=== PATIENT | female | born 1960 | race Caucasian/White ===

== ENCOUNTER 2023-12-24 22:03 | Emergency (ER) | payer BC, SELFPAY ==
[2023-12-24 22:05] VITALS: BP 111/81
--- NOTE | 2023-12-24 23:16 | ED.GENMED ---
History of Present Illness
General
Chief Complaint: Musculo-Skeletal Complaint
Source: patient
Exam Limitations: none
Time Seen by Provider: 12/24/23 23:07
History of Present Illness
History of Present Illness:
This is a 63 year old female that comes in with c/o left ankle pain. States that it started to rain and she jumped up on the bench to see if the dog bed was getting wet. States that she couldn't see it so she went to get down and thought her right
foot would land on the bench but she missed and fell on the left ankle. Denies hitting her head or any LOC. Denies any fever,chills, nausea, vomiting, headache, dizziness.
Past History
Past History
ED Past Medical History: None; Negative Asthma, HTN, Hypercholesterolemia or NIDDM
ED Past Surgical History: Gynecological (Tubal) and Tonsilectomy
Social History
Tobacco: Non-smoker
Alcohol: Daily (wine 1)
Personal:
Living: with family
Review of Systems
Review of Systems
All Other Systems: ROS reviewed and negative except as documented in HPI and ROS
Constitutional: Reports no symptoms; Denies fever or chills
EENT: Reports no symptoms
Respiratory: Denies cough or trouble breathing
Cardiac: Reports no symptoms
ABD/GI: Reports no symptoms; Denies abdominal pain, nausea, vomiting or diarrhea
: Reports no symptoms
Musculoskeletal: Reports joint pain (left ankle pain and swelling)
Skin: Reports no symptoms
Neurological: Reports no symptoms; Denies dizzy or headache
Psychiatric: Reports no symptoms
Phy Exam
General Physical Exam
General Presentation: well appearing and no apparent distress
General age: appears stated age
General Skin: warm and dry
General Habitus: normal
General Mental: alert
Eye Exam
Eye Exam: EOMI
Musculoskeletal Exam
Musculoskeletal Exam: full ROM and joint swelling (Left lateral swelling and tender to palpation Patient able to planter and dorsal flex Moves toes without discomfort)
Skin Exam
Skin Exam: normal color, warm/dry, no rash and no petechia
Psychiatric Exam
Psychiatric Exam: normal mood/affect
Course
Orders/Labs/Results
Orders:
Orders
12/24/23 22:08
Ankle, left 3 view CR [CR Ankle - Left Min 3 Views ] Urgent
Comment:
Reason For Exam: pain, swelling, fall
12/24/23 23:15
Air Splint Left-Treatment ONCE
12/24/23 23:16
Marin Wrap Left-Treatment ONCE
Vital Signs
Initial and Last Documented VS:
Initial Vital Signs
Temp Pulse Resp BP Pulse Ox
98.5 F 62 18 111/81 98
12/24/23 22:05 12/24/23 22:05 12/24/23 22:05 12/24/23 22:05 12/24/23 22:05
Last Documented Vital Signs
Temp Pulse Resp BP Pulse Ox
98.5 F 62 18 111/81 98
12/24/23 22:05 12/24/23 22:05 12/24/23 22:05 12/24/23 22:05 12/24/23 22:05
MDM/Problems Addressed
Differential Diagnosis Includes:
ankle sprain, ankle fracture
MDM/Problems Addressed:
This is a 63 year old female that comes in with c/o left ankle pain after jumping of a bench.
Will get X-ray.
Explained to patient that the X-ray is negative for any fracture. Will have patient use Ibuprofen for pain. Will give an marin and air splint. Patient to see orthopedics in the next 5-7 days if not getting any better. Ice, elevate
Chronic conditions affecting care:
NA
Acute Exacerbation and/or Progression of Chronic Illness:
NA
*Pulse Oximetry
Patient hypoxic: no
*EKG
Interpreted by ED Provider?: NA
Rate: EKG- N/A
*Community Development Specialist Interpretation
Rate: Community Development Specialist- N/A
*Critical Care Note
Total Time (30-74mins, 75-104mins- exclusive of procedures): Not Applicable
ED Attending Note
-
Portions of this chart may have been created with voice recognition software.� Occasional wrong word or��sound alike� substitutions may have occurred due to the inherent limitations of voice recognition software.
Discharge Plan
Departure
Patient Disposition: Home (Routine Discharge)
Date of Disposition: 12/24/23
Time of Disposition: 23:21
Patient with high blood pressure during this ER visit?: No
Condition: Good
Covid-19: Not Applicable
Discharge Problem:
Right ankle sprain
Instructions: Ankle Sprain ED, Ankle air splint and elastic bandage, RICE Therapy
Prescriptions:
No Action
No Current Medications
0
Referrals:
Ellen Garcia I., DO [Active] - Follow up in 1 week
Activity Restrictions/Additional Instructions:
As discussed, your X-rays is negative for any fractures. This is most likely a sprain. Please rest, ice and elevated. Ibuprofen as needed for pain. Wear the marin and air splint when you are up and walking. If after 5-7 days you are unable to bear
weight you will need to see the counterintelligence specialist. iF YOU HAVE ANY OTHER CONCERNS PLEASE RETURN TO THE EMERGENCY ROOM.
Interventions
Interventions:
*Risk Screen - Suicide Last Done: 12/24/23 22:05
*General Assessment Last Done: 12/24/23 22:05
*Neglect/Abuse Screening Last Done: 12/24/23 22:05
ED-Musculoskeletal Assessment Last Done: 12/24/23 23:00
Discharge Date and Time
Print Language: IVORIAN
== END 2023-12-24 23:55 | disposition home or self-care (01) ==
LOC: EMR 22:03
PROVIDERS: EMERGENCY PHYSICIAN Student in an Organized Health Care Education/Training Program
DX: S93.401A Sprain of unspecified ligament of right ankle, initial encounter (principal); X58.XXXA Exposure to other specified factors, initial encounter
CPT/HCPCS: 99283; 73610

== ENCOUNTER 2024-04-17 09:59 | Outpatient (RCR) | payer BC, SELFPAY | END 2024-04-17 23:59 | disposition home or self-care (01) | LOC: RPT 09:59 | PROVIDERS: ATTENDING PHYSICIAN Physician Assistant Surgical; FAMILY PHYSICIAN Internal Medicine | DX: M25.572 Pain in left ankle and joints of left foot (principal); S82.65XG Nondisplaced fracture of lateral malleolus of left fibula, subsequent encounter for closed fracture with delayed healing; S63.412D Traumatic rupture of collateral ligament of right middle finger at metacarpophalangeal and interphalangeal joint, subsequent encounter; Z73.6 Limitation of activities due to disability | CPT/HCPCS: 97110; 97112; 97162 ==

== ENCOUNTER 2024-05-08 10:00 | Outpatient (RCR) | payer BC, SELFPAY | END 2024-05-08 23:59 | disposition home or self-care (01) | LOC: RPT 10:00 | PROVIDERS: ATTENDING PHYSICIAN Physician Assistant Surgical; FAMILY PHYSICIAN Internal Medicine | DX: M25.572 Pain in left ankle and joints of left foot (principal); S82.65XG Nondisplaced fracture of lateral malleolus of left fibula, subsequent encounter for closed fracture with delayed healing; S63.412D Traumatic rupture of collateral ligament of right middle finger at metacarpophalangeal and interphalangeal joint, subsequent encounter; Z73.6 Limitation of activities due to disability | CPT/HCPCS: 97110; 97112 ==

== ENCOUNTER → 2024-10-18 08:44 | Outpatient (REF) | payer MEDICARE, SELFPAY ==
[2024-10-18 09:34] LABS: % Basophils 0.8 % (0-2); % Immature Granulocytes 0.4 % (0-0.5); % Lymphocytes 36.5 % (20.5-51.1); % Neutrophils 50.3 % (42.2-75.2); Absolute Eosinophils 0.1 10^3/uL (0-0.7); Absolute Lymphocytes 1.9 10^3/uL (1.2-3.4); Absolute Monocytes 0.6 10^3/uL (0.1-0.6); Absolute Neutrophils 2.6 10^3/uL (1.4-6.5); Hemoglobin 13.2 g/dL (12.0-16.0); Mean Corp Hgb Conc. 33.8 g/dL (33.0-37.0); Mean Corpuscular Hgb 29.4 pg (27.0-31.0); Mean Corpuscular Volume 86.9 fL (81.0-99.0); Mean Platelet Volume 10.7 fL (7.4-10.4); Nucleated Red Blood Cells % 0 %; Platelet Count 258 10^3/uL (130-400); Red Blood Cell Count 4.49 10^6/uL (4.20-5.40); Red Cell Dist. Width 13.5 % (11.5-14.5); White Blood Cell Count 5.2 10^3/uL (4.8-10.8)
[2024-10-18 10:54] LABS: Glycohemoglobin (HgbA1c) 5.6 % (4.0-5.6)
[2024-10-18 11:16] LABS: ALT (SGPT) 45 U/L (0-35); AST (SGOT) 24 U/L (14-36); Albumin 4.3 g/dl (3.5-5.0); Alkaline Phosphatase 53 U/L (38-126); Blood Urea Nitrogen 14 mg/dl (7-17); Calcium 9.9 mg/dl (8.4-10.2); Carbon Dioxide 27 mmol/L (22-30); Chloride 107 mmol/L (98-107); Glucose 96 mg/dl (70-99); HDL Cholesterol 57 mg/dl; LDL Cholesterol, Calculated 125 mg/dl; Potassium 4.6 mmol/L (3.5-5.1); Sodium 143 mmol/L (135-145); Total Bilirubin 0.6 mg/dl (0.2-1.3); Total Cholesterol 197 mg/dl (50-199); Total Protein 6.6 g/dl (6.3-8.2); Triglyceride 77 mg/dl (10-149); Very Low Density Lipoprotein 15 mg/dl (0-30); eGFR > 60.00
[2024-10-18 11:46] LABS: TSH Reflex To Free T4 1.09 uIU/ml (0.47-4.68)
== END ==
LOC: REG 08:44
PROVIDERS: ATTENDING PHYSICIAN Nurse Practitioner Adult Health
DX: R73.9 Hyperglycemia, unspecified (principal); E78.00 Pure hypercholesterolemia, unspecified
CPT/HCPCS: 36415; 80053; 80061; 83036; 84443; 85025

== ENCOUNTER → 2024-11-12 10:41 | Outpatient (REF) | payer MEDICARE, SELFPAY | LOC: RAD 10:41 | PROVIDERS: ATTENDING PHYSICIAN Nurse Practitioner Adult Health | DX: Z78.0 Asymptomatic menopausal state (principal) | CPT/HCPCS: 77080 ==